=== PATIENT | male | born 1955 | race African-American/Black ===

== ENCOUNTER 2017-10-05 02:14 | Inpatient (IN) | payer OTHER ==
--- NOTE | 2017-09-20 13:43 | History & Physical Pre-Op ---
General Information and HPI MD Statement: I have seen and personally examined TRISTAN BUTLER and documented this H&P. The patient is a 62 year old M who presented with a patient stated chief complaint of bilateral hip pain radiating to bilateral anterior thighs with ambulation. Source of Information: patient, old records Exam Limitations: no limitations History of Present Illness: Tristan is a 62-year-old gentleman who has been complaining of progressively worsening bilateral hip pain that radiates to his anterior thighs bilaterally. He states the pain is worse with ambulation with classic symptoms of neurogenic claudication. He denies any significant low back pain nor any discomfort beyond his knees. He does admit to weakness in bilateral lower extremities with quad buckling but no obvious numbness or tingling in his lower extremities. He also denies any bowel or bladder involvement. Tristan describes his pain as a 7/10 in intensity with ambulation which is relieved with rest. Tristan has tried conservative measures without relief. Given his MRI findings of L2-3 spinal stenosis with suspected pseudoarthrosis at the L4-5 level, and his failure to respond to conservative measures, he wants nothing more to do with nonsurgical treatment. He is being consented for a revision posterior lumbar decompression and fusion L2-S1 with instrumentation and iliac crest bone grafting on 10/05/2017. Allergies/Medications Allergies: Coded Allergies: No Known Allergies (10/04/17) Home Med list Acetaminophen (Tylenol Extra Strength) 500 MG TABLET 1 TAB PO TID PRN pain ( Reported) Allopurinol 300 MG TAB 1 TAB PO DAILY UNKNOWN (Reported) Aspirin (Ecotrin) 81 MG TABLET.DR 1 TAB PO DAILY BLOOD THINNER (Reported) Atenolol 50 MG TABLET 1 TAB PO DAILY BLOOD PRESSURE (Reported) Hydrochlorothiazide (Hydrodiuril 25 MG Tab) 25 MG TABLET 1 TAB PO DAILY BLOOD PRESSURE (Reported) Losartan (Cozaar) 100 MG TABLET 1 TAB PO DAILY BLOOD PRESSURE (Reported) Nifedipine (Adalat Cc) 30 MG TABLET.ER 1 TAB PO DAILY UNKNOWN (Reported) Sitagliptin Phos/Metformin HCl (Janumet 50-500 MG Tablet) 50 MG-500 MG TABLET 1 TAB PO BID diabetes (Reported) Compliance With Home Meds: GOOD Past History Medical History Blood Transfusion Hx: No Neurological: NONE EENT: NONE Cardiovascular: hypertension Respiratory: NONE Gastrointestinal: NONE Hepatic: NONE Renal: NONE Musculoskeletal: chronic back pain, disk herniation, degen joint disease, gout, osteoarthritis, sciatica, spinal stenosis Psychiatric: NONE Endocrine: diabetes Blood Disorders: NONE Cancer(s): NONE 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 2013, s/p right shoulder arthroscopy 2015, s/p colonoscopy Past Family/Social History Family History Relations & Conditions if any MOTHER (Alzheimer's DiseaseHypertensionDiabetes Mellitus). Age 85. FATHER, , Age 74; Cause: Colon cancer. SISTER (Mini Strokes(TIA)). Age 69. Psychosocial History Where Do You Live? Home Who Do You Live With? parent Services at Home None Primary Language: Australian Smoking Status: Former Smoker (quit 30 years ago) ETOH Use: 1-2 scotch drinks a week Illicit Drug Use: denies illicit drug use Other Social History: Single with no children. 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 Exam & Diagnostic Data Last 24 Hrs of Vital Signs/I&O Height: 5' 9" Weight: 280 lbs. Physical Exam General Appearance Alert, Oriented X3, Cooperative, No Acute Distress Skin No Rashes, No Breakdown, No Significant Lesion HEENT Atraumatic, PERRLA, EOMI, Mucous Membr. moist/pink Neck Supple, No JVD, No thryomegaly, +2 Carotid Pulse wo Bruit Lymphatic Cervical nl Cardiovascular Regular Rate, Normal S1, Normal S2, No Murmurs Lungs Clear to Auscultation Abdomen Normal Bowel Sounds, Soft, No Tenderness Neurological +2 DELORES. ACHILLES REFLEXES, ABSENT DELORES. PATELLAR REFLEXES, WEAK +3 DELORES. QUADS, ATROPHY OF DELORES. QUADS Extremities No Edema, Normal Pulses Vascular Normal Pulses Assessment/Plan Assessment/Plan: Assessment: Severe spinal stenosis at L2-3 and pseudoarthrosis at L4-5. Plan: Tristan is scheduled for a revision posterior lumbar decompression and fusion L2-S1 with instrumentation and iliac crest bone grafting on 10/05/2017. We discussed the procedure in full detail, as well as the pre-and postoperative course, follow-up care, and anticipated recovery. We also discussed the do's and don'ts and postoperative discharge instructions. We discussed the benefits, alternatives, and risks, not to exclude, , paralysis, infection, bleeding, continued pain, failure of the surgery, need for future surgery, DVT, vascular injury, CSF leak, etc., and given these risks, he still wishes to proceed. He is scheduled to follow-up with Dr. Eddy Keenan for his preoperative clearance. Any changes in this patient's plan is based on this patient's outpatient clinical presentation. Copies To: Kris SPEAR,Luciano Attending MD Review Statement Attending Statement Attending MD Statement: examined this patient, discuss w/resident/PA/WAREHOUSE PACKAGING SUPERVISOR, agreed w/resident/PA/WAREHOUSE PACKAGING SUPERVISOR, reviewed images
[~2017-10-05] VITALS: Ht 175.3 cm; Wt 126.6 kg
[~2017-10-05 02:14] MED LIST: ADALAT CC30 MG PO; ALLOPURINOL300 MG PO; ASPIR 8181 MG PO; ATENOLOL50 MG PO; COZAAR 100MG T100 MG PO; GOOD SENSE ASPI81 M1 PO; HYDRODIURIL 2525 MG PO; JANUMET 50-5001 EACH PO; TYLENOL EXTRA500 M2 PO
--- NOTE | 2017-10-05 10:59 | Operative Report ---
Operative/Inv Procedure Report Surgery Date: 10/05/17 Name of Procedure: Lumbosacral inspection of fusion mass level of segmental hardware bilaterally L3 4 5 S1. Laminectomies L3 4 4551. Pedicle screw instrumentation L3 4 5 S1. Use of fluoroscopy. Fusion with local autologous bone graft L3 to S1. 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 Estimated Blood Loss: 200 Surgeon/Product Development Specialist: Kris SPEAR,Luciaon ESCOBEDO Anesthesia: general endotracheal tube Monitors: Neuro Operative/Procedure Note Note: After adequate general anesthesia was achieved the patient was placed in the prone position. Previous incision was entered sharply with the scalpel in the midline. Dissection was carried over the dorsal elements with electrocautery and the deep retractors were placed. The hardware was examined as was the fusion and there is evidence of failed hardware at a nonunion at L5-S1 bilaterally. The hardware was removed. One screw was still found to be stripped at L5 on the right and was left in place. The osteotome and instrumentation was used to create laminectomies removing some of the ostial calcified bone over the laminotomy the right side. The bone was stored for fusion. The screw holes were evaluated the whole at L3 on the left was found to be soft and not used for instrumentation and screws were placed on the right side at L3 bilaterally at L4 on the left side at L5 and bilaterally at S1. Excellent purchase was achieved and all screws placed. The rods were contoured into position and torqued tightened into the to a section of the screws. The wound was copiously irrigated the bone graft was packed over the decorticated area from L3 to S1 laterally. The wound was again irrigated a closure of the lumbar dorsal fashion subcutaneous tissue was performed with absorbable suture the skin was closed with brooks. Sterile dressings were applied. Patient was transferred to the [facility].
[2017-10-05] MEDS ORDERED: METFORMIN HCL500 M3 PO (11:35)
--- NOTE | 2017-10-05 11:52 | Patient Discharge Instructions ---
Acute Coronary Syndrome Inclusion Criteria At DC or during hospital stay patient has or had the following: ACS DIAGNOSIS No Discharge Core Measures Meds if any: Prescribed or Continued at Discharge Meds if any: NOT Prescribed or Continued at Discharge Congestive Heart Failure Inclusion Criteria At DC or during hospital stay patient has or had the following: CHF DIAGNOSIS No Discharge Core Measures Meds if any: Prescribed or Continued at Discharge Meds if any: NOT Prescribed or Continued at Discharge Cerebrovascular accident Inclusion Criteria At DC or during hospital stay patient has or had the following: CVA/TIA Diagnosis No Discharge Core Measures Meds if any: Prescribed or Continued at Discharge Meds if any: NOT Prescribed or Continued at Discharge Venous thromboembolism Inclusion Criteria VTE Diagnosis No VTE Type NONE VTE Confirmed by (Test) NONE Discharge Core Measures - Per Current guidelines, there needs to be overlap - treatment for the first 5 days of Warfarin therapy. - If discharged on Warfarin prior to 5 days of - overlap therapy, the patient will need to be - assessed for post discharge needs including - *Post discharge parental anticoagulation - *Warfarin and/or parental anticoagulation education - *Follow up date to check INR post discharge At least 5 days overlap therapy as Inpatient No Meds if any: Prescribed or Continued at Discharge Note: Overlap Therapy is Warfarin and Anticoagulant Meds if any: NOT Prescribed or Continued at Discharge
[2017-10-05] MEDS ORDERED: COLACE100 M1 PO (11:56)
[2017-10-05] MEDS ORDERED: MILK OF MA400 MG/52 PO (11:56)
[2017-10-05] MEDS ORDERED: MULTIVITAMINS1 EAC9 PO (11:56)
[2017-10-05] MEDS ORDERED: DULCOLAX10 M1 RC (11:56)
[2017-10-05] MEDS ORDERED: OS-CAL 500+D31 EAC1 PO (11:56)
[2017-10-05] MEDS ORDERED: TYLENOL EXTRA500 M2 PO (11:56)
[2017-10-05] MEDS ORDERED: PERCOCET 5-3251 EACH PO (11:56)
[2017-10-05] MEDS ORDERED: VITAMIN D31000 UNI2 PO (11:56)
[2017-10-05 12:09] LABS: ABSOLUTE BASOPHIL COUNT 0 /CUMM (0.0-0.2); ABSOLUTE GRANULOCYTE CT 8.2 /CUMM (1.4-6.5); ABSOLUTE LYMPH COUNT 1.4 /CUMM (1.2-3.4)
[2017-10-05 12:17] LABS: ABSOLUTE EOSINOPHIL COUNT 0 /CUMM (0.0-0.7); ABSOLUTE MONOCYTE COUNT 0.3 /CUMM (0.10-0.60); BASOPHIL % 0.5 % (0.0-2.0); EOSINOPHIL % 0.4 % (0-5); GRANULOCYTE % 82.5 % (42.2-75.2); HEMATOCRIT 42.8 % (42-52); MEAN CORPUSCULAR HGB 31.1 PG (27.0-31.0); MEAN CORPUSCULAR HGB CONC 34.6 G/DL (33.0-37.0); MEAN PLATELET VOLUME 9.2 FL (7.4-10.4); RBC DISTRIBUTION WIDTH 14.8 % (11.5-14.5); RED BLOOD CELL CT 4.75 /CUMM (4.70-6.10)
[2017-10-05 12:31] LABS: PLATELET COUNT 237 /CUMM (130-400)
[2017-10-05 13:08] VITALS: BP 150/90
--- NOTE | 2017-10-05 14:17 | Cons- Medical ---
Scarlet Arshad MD 10/05/17 1416: General Information and HPI Consulting Request Date of Consult: 10/05/17 Requested By: Luciano Ponce MD Reason for Consult: HTN and DM management Source of Information: patient, old records Exam Limitations: no limitations History of Present Illness: Patient is a 62 YO M with PMH significant for HTN, DM, spinal stenosis requiring surgical intervention presented electively for lumbosacral laminectomy with pedicle screw instrumentation followed by local autologous bone grafting. Medicine is consulted for management of diabetes and hypertension postoperatively. Reportedly never had any cardiac problems. He quit smoking, socially drinks twice a week, no drugs of abuse He had his shoulder surgery in 2016. Allergies/Medications Allergies: Coded Allergies: No Known Allergies (10/04/17) Home Med List: Acetaminophen (Tylenol Extra Strength) 500 MG TABLET 1 TAB PO TID PRN pain ( Reported) Acetaminophen (Tylenol Extra Strength) 500 MG TABLET 1 TAB PO TID PRN TEMP>101 Allopurinol 300 MG TAB 1 TAB PO DAILY UNKNOWN (Reported) Aspirin (Ecotrin) 81 MG TABLET.DR 1 TAB PO DAILY BLOOD THINNER (Reported) Atenolol 50 MG TABLET 1 TAB PO DAILY BLOOD PRESSURE (Reported) Bisacodyl (Dulcolax) 10 MG SUPP.RECT 1 SUP RC DAILY PRN CONSTIPATION Calcium Carbonate/Vitamin D3 (Os-Adalberto 500+D3 Caplet) 500 MG-200 TABLET 1 TAB PO BID BONE HEALTH Cholecalciferol (Vitamin D3) 1,000 UNIT TABLET 1 TAB PO DAILY BONE HEALTH Docusate Sodium (Colace) 100 MG CAPSULE 1 CAP PO BID PRN CONSTIPATION Hydrochlorothiazide (Hydrodiuril 25 MG Tab) 25 MG TABLET 1 TAB PO DAILY BLOOD PRESSURE (Reported) Losartan (Cozaar) 100 MG TABLET 1 TAB PO DAILY BLOOD PRESSURE (Reported) Magnesium Hydroxide (Milk Of Magnesia) 400 MG/5 ML ORAL.SUSP 5 ML PO Q8P PRN CONSTIPATION Metformin HCl 500 MG TABLET 1 TAB PO BID DIABETES (Reported) Multiple Vitamin (Multivitamins) 1 EACH TABLET 1 TAB PO DAILY GENERAL HEALTH Nifedipine (Adalat Cc) 30 MG TABLET.ER 1 TAB PO DAILY UNKNOWN (Reported) Oxycodone HCl/Acetaminophen (Percocet 5-325 MG Tablet) 5 MG-325 MG TABLET 1-2 TAB PO Q4-6 PRN PAIN Sitagliptin Phos/Metformin HCl (Janumet 50-500 MG Tablet) 50 MG-500 MG TABLET 1 TAB PO BID diabetes (Reported) Current Medications: Current Medications Sig/Maria Isabel Start time Last Medication Dose Route Stop Time Status Admin Acetaminophen 650 MG Q4P PRN 10/05 1145 AC PO Acetaminophen 1,000 MG .STK-MED ONE 10/05 0709 DC IV 10/05 0710 Allopurinol 300 MG DAILY 10/06 09 AC PO Aspirin Buffered 81 MG DAILY 10/06 09 AC PO Atenolol 50 MG DAILY 10/06 09 AC PO Bisacodyl 10 MG DAILY NEEDED PRN 10/05 1145 AC UT Calcium 600 MG BID 10/05 2100 AC PO Cefazolin Sodium 1,000 MG IQ8 10/05 1600 AC 10/05 IV 10/06 0801 1637 Cefazolin Sodium 2,000 MG ONCE 10/05 0000 NR IV 10/05 2359 Cholecalciferol 1,000 IU DAILY 10/06 09 AC PO Docusate Sodium 100 MG TID 10/05 1400 AC 10/05 PO 1447 Fentanyl Citrate 250 MCG .STK-MED ONE 10/05 0708 DC IM 10/05 0709 Hydrochlorothiazide 25 MG DAILY 10/06 09 AC PO Hydromorphone HCl 2 MG .STK-MED ONE 10/05 0707 DC IM 10/05 0708 Insulin Aspart 0 AT BEDTIME 10/05 2100 AC SC Insulin Aspart 0 TIDAC 10/05 1200 AC 10/05 SC 1637 Lactated Ringer's 1,000 ML Q10H 10/05 1145 AC 10/05 IV 1446 Losartan Potassium 100 MG DAILY 10/06 09 AC PO Magnesium Hydroxide 30 ML Q8P PRN 10/05 1145 AC PO Metformin HCl 500 MG BID 10/05 2100 AC PO Midazolam HCl 2 MG .STK-MED ONE 10/05 0708 DC IM 10/05 0709 Morphine Sulfate 1 MG Q3P PRN 10/05 1145 AC IV Multivitamins 1 TAB DAILY 10/06 09 AC PO Nifedipine 30 MG DAILY 10/06 0900 AC PO Ondansetron HCl 4 MG Q6P PRN 10/05 1145 AC IV Oxycodone/ 1 TAB Q4P PRN 10/05 1145 AC Acetaminophen PO Oxycodone/ 2 TAB Q4P PRN 10/05 1145 AC 10/05 Acetaminophen PO 1637 Remifentanil 2 MG .STK-MED ONE 10/05 0708 DC IV 10/05 0709 Sitagliptin Phosphate 50 MG BID 10/05 2100 AC PO Trimethobenzamide HCl 200 MG Q6P PRN 10/05 1145 AC IM Review of Systems Review of Systems Constitutional: Reports: see HPI. 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 2013 s/ p right shoulder arthroscopy 2016 s/p colonoscopy Family History Relations & Conditions If Any: MOTHER (Alzheimer's DiseaseHypertensionDiabetes Mellitus). Age 85. FATHER, , Age 74; Cause: Colon cancer. SISTER (Mini Strokes(TIA)). Age 69. Psychosocial History Where Do You Live? Home Who Do You Live With? parent Services at Home: None Primary Language: Bahamian Smoking Status: Never Smoked (quit 30 years ago) ETOH Use: 1-2 scotch drinks a week Illicit Drug Use: denies illicit drug use Other Social History: Single with no children. Functional Ability ADLs Independent: dressing, eating, toileting, bathing. IADLs Independent: shopping, housework, finances, food prep, telephone, transportation , medication admin. 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 Exam & Diagnostic Data Last 24 Hrs of Vital Signs/I&O Vital Signs Date Time Temp Pulse Resp B/P B/P Pulse O2 O2 Flow FiO2 Mean Ox Delivery Rate 10/05 1806 Room Air 10/05 1313 92 Room Air Room Air 10/05 1308 97.8 63 16 150/90 92 Room Air Room Air Intake & Output 10/05 1600 10/05 0800 10/05 0000 Intake Total Output Total 850 Balance -850 Output, Urine 850 Patient 126.552 kg Weight Weight Reported by Patient Measurement Method Physical Exam General Appearance: well developed/nourished, no apparent distress, alert, awake Head: atraumatic, normal appearance Eyes: Bilateral: normal appearance, PERRL, EOMI. Ears, Nose, Throat: normal pharynx, normal ENT inspection Neck: normal inspection, supple Cardiovascular: regular rate/rhythm, normal heart sounds Peripheral Pulses: 2+ radial (R), 2+ radial (L) Gastrointestinal: normal bowel sounds, soft, non-tender Extremities: normal inspection, normal capillary refill Neurologic/Psych: awake, alert, oriented x 3, normal mood/affect Cranial Nerves: normal hearing, normal speech, PERRL Last 24 Hrs of Labs/Gentry: Laboratory Tests 10/05/17 1200: CBC w Diff NO MAN DIFF REQ, RBC 4.75, MCV 90.0, MCH 31.1 H, MCHC 34.6, RDW 14.8 H, MPV 9.2, Gran % 82.5 H, Lymphocytes % 14.0 L, Monocytes % 2.6, Eosinophils % 0.4, Basophils % 0.5, Absolute Granulocytes 8.2 H, Absolute Lymphocytes 1.4, Absolute Monocytes 0.3, Absolute Eosinophils 0, Absolute Basophils 0 Assessment/Plan Assessment/Plan Patient is a 62-year-old male with history of diabetes, hypertension presented to [place] electively for laminectomy/bone grafting of lumbar spinal stenosis. He had a history of diabetes and on oral hypoglycemics started 10/metformin 50/ 500 twice a day. He takes for antihypertensives including no rales, hype hydrochlorothiazide, losartan and nifedipine. His aspirin was on hold prior to surgery. Problem list 1. Status post Lumbosacral inspection of fusion mass level of segmental hardware bilaterally L3 4 5 S1. Laminectomies L3-S1. Pedicle screw instrumentation L3-S1. Fusion with local autologous bone graft L3 to S1 - POD 0 2. Diabetes mellitus on oral hypoglycemics 3. Hypertension 4. Gout Plan Continue postoperative care per surgery Please avoid oral hypoglycemic agents while in the hospital Start low-dose insulin sliding scale with meals, Accu-Cheks TIDAC/HS, Levemer 3 units twice a day Continue antihypertensives including atenolol, losartan, nifedipine HCTZ for now Pain management per surgery DVT prophylaxis all the time Problem List: 1. Gout 2. Diabetes 3. Hypertension Consult Acknowledgment - Thank you for your consult request. Chris Strickland MD 10/05/17 5809: Assessment/Plan Consult Acknowledgment - Thank you for your consult request. Attending MD Review Statement Attending Statement Attending Statement: examined this patient, discuss w/resident/PA/ESCORT BLIND, agreed w/resident/PA/ESCORT BLIND, discussed with family, reviewed EMR data (avail), amended to note Attending Assessment/Plan: The patient is a 62 yo male with h/o HTN, DM2, asthma, and spinal stenosis and h /o prior lumbar surgery who presented with h/o increasing back pain for elective lumbosacral laminectomy. His BP and diabetes have been stable. He did well with surgery. The patient is feeling well post op other than typical LBP. No dyspnea, chest pain or GI symptoms. Physical Exam; VS: T 97.8, P 63, R 16, BP 150/80, PO 92% HEENT: eyes- PERRLA, EOMI christina- moist mucosa Neck: no bruits/JVD Chest: clear Cor: RRR nl S1, S2 w/o murm Abd: BS+, soft, NT Ext: no edema, pulses 2+ Neuro: alert & oriented, non-focal exam Labs/Tests- as above. Impression/Plan: #S/P Lumbosacral Fusion- did well with surgery. Plan: As per surgery. #HTN- BP stable. Plan: Continue Nifedipine, HTCZ, Atenolol, & Losartan. #DM2- blood sugars being followed. Plan: Agree with sliding scale overage at present. Continuing oral agents.
--- NOTE | 2017-10-05 17:51 | PN- Orthopedic ---
Subjective Subjective: patient feels well without complaints postop, pain controlled Objective Vital Signs and I&Os Vital Signs Date Time Temp Pulse Resp B/P B/P Pulse O2 O2 Flow FiO2 Mean Ox Delivery Rate 10/05 1313 92 Room Air Room Air 10/05 1308 97.8 63 16 150/90 92 Room Air Room Air Intake & Output 10/05 1600 10/05 0800 10/05 0000 10/04 1600 10/04 0800 10/04 0000 Intake Total Output Total 850 Balance -850 Output, Urine 850 Patient 279 lb 280 lb Weight Weight Reported by Patient Measurement Method lumbar spine - mild drinage in dressings -reinforced motor 5/5 all muscle groups sensory intact, distal pulses intact calves soft bilaterally and distal pulses intact Assessment/Plan Assessment/Plan 62 y/o male with loose hardware and unonunion s/p Lumbosacral inspection of fusion mass level of segmental hardware bilaterally L3 4 5 S1. Laminectomies L3-S1. Pedicle screw instrumentation L3-S1. Fusion with local autologous bone graft L3 to S1. EBL @ 200cc sitting in bed -drainage in into dressings -reinforced by nursing -appears to be minimal and not worrisome tolarating POs -had a full dinner without nausea or vomiting voided without difficulty OOB with nursing ambulation with assitance Core Measures Venous Thromboembolism VTE Risk Factors No risk factors No Mechanical VTE Prophylaxis d/t Surgical Contraindication No VTE Pharm Prophylaxis d/t NA PharmProphylax ordered
[2017-10-05 21:29] VITALS: BP 136/90
[2017-10-06 06:45] VITALS: BP 130/80
[2017-10-06 08:34] LABS: ABSOLUTE BASOPHIL COUNT 0 /CUMM (0.0-0.2); ABSOLUTE EOSINOPHIL COUNT 0.1 /CUMM (0.0-0.7); ABSOLUTE GRANULOCYTE CT 6.5 /CUMM (1.4-6.5); ABSOLUTE MONOCYTE COUNT 1.2 /CUMM (0.10-0.60); BASOPHIL % 0.3 % (0.0-2.0); EOSINOPHIL % 0.8 % (0-5); GRANULOCYTE % 66.9 % (42.2-75.2); HEMATOCRIT 40.1 % (42-52); MEAN CORPUSCULAR HGB 30.9 PG (27.0-31.0); MEAN CORPUSCULAR VOLUME 90.7 FL (80.0-94.0); MEAN PLATELET VOLUME 8.5 FL (7.4-10.4); PLATELET COUNT 274 /CUMM (130-400); RBC DISTRIBUTION WIDTH 14.8 % (11.5-14.5); RED BLOOD CELL CT 4.43 /CUMM (4.70-6.10); WHITE BLOOD CELL COUNT 9.8 /CUMM (4.8-10.8)
--- NOTE | 2017-10-06 10:47 | PN- Medicine Consult ---
Pavithra SPEAR,Scarlet 10/06/17 1046: Assessment/PlanMedical Consult Assessment/Plan Assessment: Patient is a 62-year-old male with history of diabetes, hypertension presented to [facility] electively for laminectomy/bone grafting of lumbar spinal stenosis. He had a history of diabetes and on oral hypoglycemics started 10/metformin 50/ 500 twice a day. He takes for antihypertensives including no rales, hype hydrochlorothiazide, losartan and nifedipine. His aspirin was on hold prior to surgery. Problem list 1. Status post Lumbosacral inspection of fusion mass level of segmental hardware bilaterally L3 4 5 S1. Laminectomies L3-S1. Pedicle screw instrumentation L3-S1. Fusion with local autologous bone graft L3 to S1 - POD 1 2. Diabetes mellitus on oral hypoglycemics 3. Hypertension 4. Gout Plan Continue postoperative care per surgery Please avoid oral hypoglycemic agents while in the hospital Start low-dose insulin sliding scale with meals, Accu-Cheks TIDAC/HS, Levemer 3 units twice a day Continue antihypertensives including atenolol, losartan, nifedipine HCTZ for now Pain management per surgery DVT prophylaxis all the time Plan: ABOVE Problem List: 1. Diabetes 2. Hypertension 3. Gout Subjective Subjective: seen at bedside. Appears stable. No overnight issues. Review of Systems Constitutional: Reports: see HPI. Objective Last 24 Hrs of Vital Signs/I&O Vital Signs Date Time Temp Pulse Resp B/P B/P Pulse O2 O2 Flow FiO2 Mean Ox Delivery Rate 10/06 0852 64 148/98 10/06 0645 97.6 56 16 130/80 96 10/05 2129 98.5 62 18 136/90 95 10/05 1806 Room Air 10/05 1600 Room Air 10/05 1313 92 Room Air Room Air 10/05 1308 97.8 63 16 150/90 92 Room Air Room Air Intake & Output 10/06 1600 10/06 0800 10/06 0000 Intake Total 2130 Output Total 1325 400 Balance -1325 1730 Intake, IV 800 Intake, Oral 1330 Output, Urine 1325 400 Physical Exam General Appearance: well developed/nourished, no apparent distress, alert, awake , comfortable Head: atraumatic, normal appearance Ears, Nose, Throat: normal pharynx, normal ENT inspection Neck: normal inspection, supple Cardiovascular: regular rate/rhythm, normal S1, S2 Respiratory: normal breath sounds, chest non-tender, no respiratory distress Peripheral Pulses: 2+ radial (R), 2+ radial (L) Abdomen: normal bowel sounds, soft, non-tender Current Medications: Current Medications Sig/Maria Isabel Start time Last Medication Dose Route Stop Time Status Admin Acetaminophen 650 MG Q4P PRN 10/05 1145 AC PO Allopurinol 300 MG DAILY 10/06 09 AC 10/06 PO 0850 Aspirin Buffered 81 MG DAILY 10/06 09 AC 10/06 PO 0849 Atenolol 50 MG DAILY 10/06 09 AC 10/06 PO 0850 Bisacodyl 10 MG DAILY NEEDED PRN 10/05 1145 AC UT Calcium 600 MG BID 10/05 2100 AC 10/06 PO 0849 Cefazolin Sodium 1,000 MG IQ8 10/05 1600 DC 10/06 IV 10/06 0801 0848 Cefazolin Sodium 2,000 MG ONCE 10/05 0000 DC IV 10/05 2359 Cholecalciferol 1,000 IU DAILY 10/06 09 AC 10/06 PO 0850 Docusate Sodium 100 MG TID 10/05 1400 AC 10/06 PO 1543 Hydrochlorothiazide 25 MG DAILY 10/06 09 AC 10/06 PO 0852 Insulin Aspart 0 AT BEDTIME 10/05 2100 AC SC Insulin Aspart 0 TIDAC 10/05 1200 AC 10/06 SC 0849 Lactated Ringer's 1,000 ML Q10H 10/05 1145 AC 10/06 IV 0848 Losartan Potassium 100 MG DAILY 10/06 09 AC 10/06 PO 0852 Magnesium Hydroxide 30 ML Q8P PRN 10/05 1145 AC PO Metformin HCl 500 MG BID 10/05 2100 AC 10/06 PO 0849 Morphine Sulfate 1 MG Q3P PRN 10/05 1145 AC IV Multivitamins 1 TAB DAILY 10/06 09 AC 10/06 PO 0850 Nifedipine 30 MG DAILY 10/06 09 AC 10/06 PO 0849 Ondansetron HCl 4 MG Q6P PRN 10/05 1145 AC IV Oxycodone/ 1 TAB Q4P PRN 10/05 1145 AC Acetaminophen PO Oxycodone/ 2 TAB Q4P PRN 10/05 1145 AC 10/06 Acetaminophen PO 1539 Patient Medication 1 ED ONE ONE 10/06 1345 DC 10/06 Teaching ED 10/06 1346 1539 Sitagliptin Phosphate 50 MG BID 10/05 2100 AC 10/06 PO 0849 Trimethobenzamide HCl 200 MG Q6P PRN 10/05 1145 AC IM Results Last 24 Hrs Lab/[place] Results: Laboratory Tests 10/06/17 0758: CBC w Diff NO MAN DIFF REQ, RBC 4.43 L, MCV 90.7, MCH 30.9, MCHC 34.0, RDW 14.8 H, MPV 8.5, Gran % 66.9, Lymphocytes % 20.2 L, Monocytes % 11.8 H, Eosinophils % 0.8, Basophils % 0.3, Absolute Granulocytes 6.5, Absolute Lymphocytes 2.0, Absolute Monocytes 1.2 H, Absolute Eosinophils 0.1, Absolute Basophils 0 Chris Strickland MD 10/06/17 1441: Attending MD Review Statement Attending Sign Off Attending Cosign Statement: I have: examined this patient, reviewed [facility] EMR data, discussd w/resident/PA/ STOCK GRADER, discussed mgmt plan w/rusty, discussed mgmt plan w/pt, agreed w/resident/PA/STOCK GRADER , amended to note. Other Findings: The patient was seen and discussed with the resident. He is doing well post operatively. Agree with plan of care.
--- NOTE | 2017-10-06 11:56 | PN- Orthopedic ---
Subjective Subjective: Patient feeling better. No preop symptoms. + mild postop incisional pain. Ambulated with PT. No fever/chills, N/V, SOB. Joaquim. po. +Voiding and + flatus. Review of Systems: Remarkable for the above complaints. Objective Vital Signs and I&Os Vital Signs Date Time Temp Pulse Resp B/P B/P Pulse O2 O2 Flow FiO2 Mean Ox Delivery Rate 10/06 0852 64 148/98 10/06 0645 97.6 56 16 130/80 96 10/05 2129 98.5 62 18 136/90 95 10/05 1806 Room Air 10/05 1600 Room Air 10/05 1313 92 Room Air Room Air 10/05 1308 97.8 63 16 150/90 92 Room Air Room Air Intake & Output 10/06 1600 10/06 0800 10/06 0000 10/05 1600 10/05 0800 10/05 0000 Intake Total 2130 Output Total 1325 400 850 Balance -1325 1730 -850 Intake, IV 800 Intake, Oral 1330 Output, Urine 1325 400 850 Patient 279 lb Weight Weight Reported by Patient Measurement Method Physical Exam General Appearance: well developed/nourished, no apparent distress, alert, awake , comfortable Respiratory: normal breath sounds, no respiratory distress Cardiovascular: regular rate/rhythm Abdomen: normal bowel sounds, soft, non-tender Back: Incision C/D/I. Dressing changed. + old blood present. No active bleeding noted. +edema around incision. Neurologic/Psychiatric: Neurovascularly stable and intact with no new or worsening gross motor or sensory loss in oscar. lower extremities. Skin: intact Current Medications: Current Medications Sig/Maria Isabel Start time Last Medication Dose Route Stop Time Status Admin Acetaminophen 650 MG Q4P PRN 10/05 1145 AC PO Allopurinol 300 MG DAILY 10/06 09 AC 10/06 PO 0850 Aspirin Buffered 81 MG DAILY 10/06 09 AC 10/06 PO 0849 Atenolol 50 MG DAILY 10/06 09 AC 10/06 PO 0850 Bisacodyl 10 MG DAILY NEEDED PRN 10/05 1145 AC PA Calcium 600 MG BID 10/05 2100 AC 10/06 PO 0849 Cefazolin Sodium 1,000 MG IQ8 10/05 1600 DC 10/06 IV 10/06 0801 0848 Cefazolin Sodium 2,000 MG ONCE 10/05 0000 DC IV 10/05 2359 Cholecalciferol 1,000 IU DAILY 10/06 0900 AC 10/06 PO 0850 Docusate Sodium 100 MG TID 10/05 1400 AC 10/06 PO 0849 Hydrochlorothiazide 25 MG DAILY 10/06 09 AC 10/06 PO 0852 Insulin Aspart 0 AT BEDTIME 10/05 2100 AC SC Insulin Aspart 0 TIDAC 10/05 1200 AC 10/06 SC 0849 Lactated Ringer's 1,000 ML Q10H 10/05 1145 AC 10/06 IV 0848 Losartan Potassium 100 MG DAILY 10/06 0900 AC 10/06 PO 0852 Magnesium Hydroxide 30 ML Q8P PRN 10/05 1145 AC PO Metformin HCl 500 MG BID 10/05 2100 AC 10/06 PO 0849 Morphine Sulfate 1 MG Q3P PRN 10/05 1145 AC IV Multivitamins 1 TAB DAILY 10/06 0900 AC 10/06 PO 0850 Nifedipine 30 MG DAILY 10/06 0900 AC 10/06 PO 0849 Ondansetron HCl 4 MG Q6P PRN 10/05 1145 AC IV Oxycodone/ 1 TAB Q4P PRN 10/05 1145 AC Acetaminophen PO Oxycodone/ 2 TAB Q4P PRN 10/05 1145 AC 10/06 Acetaminophen PO 0916 Sitagliptin Phosphate 50 MG BID 10/05 2100 AC 10/06 PO 0849 Trimethobenzamide HCl 200 MG Q6P PRN 10/05 1145 AC IM Results Last 48 Hours of Labs: Laboratory Tests 10/06 10/05 0758 1200 Hematology CBC w Diff NO MAN DIFF REQ NO MAN DIFF REQ WBC (4.8 - 10.8 /CUMM) 9.8 10.0 RBC (4.70 - 6.10 /CUMM) 4.43 L 4.75 Hgb (14.0 - 18.0 G/DL) 13.6 L 14.8 Hct (42 - 52 %) 40.1 L 42.8 MCV (80.0 - 94.0 FL) 90.7 90.0 MCH (27.0 - 31.0 PG) 30.9 31.1 H MCHC (33.0 - 37.0 G/DL) 34.0 34.6 RDW (11.5 - 14.5 %) 14.8 H 14.8 H Plt Count (130 - 400 /CUMM) 274 237 MPV (7.4 - 10.4 FL) 8.5 9.2 Gran % (42.2 - 75.2 %) 66.9 82.5 H Lymphocytes % (20.5 - 51.1 %) 20.2 L 14.0 L Monocytes % (1.7 - 9.3 %) 11.8 H 2.6 Eosinophils % (0 - 5 %) 0.8 0.4 Basophils % (0.0 - 2.0 %) 0.3 0.5 Absolute Granulocytes (1.4 - 6.5 /CUMM) 6.5 8.2 H Absolute Lymphocytes (1.2 - 3.4 /CUMM) 2.0 1.4 Absolute Monocytes (0.10 - 0.60 /CUMM) 1.2 H 0.3 Absolute Eosinophils (0.0 - 0.7 /CUMM) 0.1 0 Absolute Basophils (0.0 - 0.2 /CUMM) 0 0 Assessment/Plan Assessment/Plan Assessment: S/p Rev. PLDF L3-S1 with Instr./local bone Plan: Continue po Percocet D/C IV fluids Ambulate with PT Do's and Don'ts explained. Will F/U in am Possible D/C in am Problem List: 1. Hypertension 2. Diabetes 3. Gout Core Measures Venous Thromboembolism VTE Risk Factors No risk factors No Mechanical VTE Prophylaxis d/t Surgical Contraindication No VTE Pharm Prophylaxis d/t NA PharmProphylax ordered Attending MD Review Statement Attending Statement Attending MD Statement: examined this patient, discuss w/resident/PA/EMERGENCY TELECOMMUNICATIONS DISPATCHER, agreed w/resident/PA/EMERGENCY TELECOMMUNICATIONS DISPATCHER
[2017-10-06 15:18] VITALS: BP 138/78
[2017-10-06 22:26] VITALS: BP 141/82
[2017-10-07 06:42] VITALS: BP 155/81
[2017-10-07 08:24] VITALS: BP 146/86
--- NOTE | 2017-10-07 08:39 | PN- Orthopedic ---
Subjective Subjective: OOB in chair, no complaints overnight ambulating withoug difficulty pain is well controlled tolerating diet Objective Vital Signs and I&Os Vital Signs Date Time Temp Pulse Resp B/P B/P Pulse O2 O2 Flow FiO2 Mean Ox Delivery Rate 10/07 0824 73 146/86 10/07 0823 73 146/86 10/07 0823 73 146/86 10/07 0642 98.5 62 20 155/81 95 Room Air 10/06 2226 98.3 68 20 141/82 96 Room Air 10/06 1518 98.6 55 18 138/78 97 10/06 0852 64 148/98 Intake & Output 10/07 1600 10/07 0800 10/07 0000 10/06 1600 10/06 0800 10/06 0000 Intake Total 161 136 4962 Output Total 150 1625 400 Balance 50 -1525 1730 Intake, IV 100 800 Intake, Oral 200 1330 Output, Urine 150 1625 400 Physical Exam: VSS,afebrile Chest: clear bilaterally, no r/r/w, RRR Abd: soft, good bs Ext: Neurovascularly stable and intact, no new or worsening gross motor or sensory loss in oscar. lower extremities, calves nontender bilaterally Wd: dressing changed, brooks intact, no drainage or erythema Assessment/Plan Assessment/Plan 62yo male pod 2 s/p L3-S1 revision fusion dc planning continue current pain meds PT-WBAT Core Measures Venous Thromboembolism VTE Risk Factors No risk factors No Mechanical VTE Prophylaxis d/t Surgical Contraindication No VTE Pharm Prophylaxis d/t NA PharmProphylax ordered
--- NOTE | 2017-10-07 09:28 | PN- Att Addend ---
Attending Addendum Attending Brief Note Patient seen and examined. He sitting in a chair. Postoperatively appears to be doing well. Blood pressures 146/86, pulse is 73, breathing at 16-18 and MAXIMUM TEMPERATURE of 98.5. He is awake alert oriented, lungs are clear to auscultation, heart is S1-S2 regular, abdomen is soft and his surgical site is dressed. This is a 62-year-old with diabetes, hypertension who is here is with spinal stenosis and status post lumbar surgery with fusion and laminectomy. His blood pressure is well controlled on his current antihypertensive regimen and will likely be discharged today as per surgery.
--- NOTE | 2017-10-07 10:41 | Surg Short-stay <48hrs Dis Sum ---
Visit Information Visit Dates Admission Date: 10/05/17 Discharge Date: 10/07/2017 Surgical Short Stay DC Summary Admission Diagnosis: Severe spinal stenosis at L2-3 and pseudoarthrosis at L4-5. Final Diagnosis: Same, s/p surgery Procedure(s): Lumbosacral inspection of fusion mass level of segmental hardware bilaterally L3 4 5 S1. Laminectomies L3 4 4551. Pedicle screw instrumentation L3 4 5 S1. Use of fluoroscopy. Fusion with local autologous bone graft L3 to S1. Summary/Significant Findings: Pt underwent procedure as listed in Operative report on 10/05. He tolerated the procedure well and was brought to the PACU in stable condition. Over the next two days, he ambulated, his pain was controlled, he voided spontaneously and he tolerated his diet. He was cleared by medicine and PT to be discharged to a hotel on 10/07. All questions answered. Condition at Discharge: good Discharge Disposition: home or self care Discharge instructions provided to patient/family: Yes Post discharge follow-up plan: Scheduled with Dr Ponce
== END 2017-10-07 13:22 | DRG 460 ==
LOC: SDA 02:14 → MERGE 07:00 → ENRESERV 10:47 → ENTRNSPT 12:24 → EDTRNSPTSTS 12:39 → EDTRNSPT 12:39 → CMPTRNSPT 12:52 → 2NB 12:53 → ENPENDDIS 10-07 12:29 → ENTRNSPT 10-07 13:08 → EDTRNSPTSTS 10-07 13:13 → EDTRNSPT 10-07 13:13 → 2NB 10-07 13:22 → CMPTRNSPT 10-07 13:22
PROVIDERS: Orthopaedic Surgery Orthopaedic Surgery of the Spine
PROC: 0SG1071 Fusion of 2 or more Lumbar Vertebral Joints with Autologous Tissue Substitute, Posterior Approach, Posterior Column, Open Approach (ICD-10-PCS; principal; 2017-10-05)
PROC: 0QP004Z Removal of Internal Fixation Device from Lumbar Vertebra, Open Approach (ICD-10-PCS; principal; 2017-10-05)
PROC: 4A11X4G Monitoring of Peripheral Nervous Electrical Activity, Intraoperative, External Approach (ICD-10-PCS; principal; 2017-10-05)
PROC: 0SG3071 Fusion of Lumbosacral Joint with Autologous Tissue Substitute, Posterior Approach, Posterior Column, Open Approach (ICD-10-PCS; principal; 2017-10-05)
DX: M48.062 Spinal stenosis, lumbar region with neurogenic claudication (principal); M96.0 Pseudarthrosis after fusion or arthrodesis; Y83.8 Other surgical procedures as the cause of abnormal reaction of the patient, or of later complication, without mention of misadventure at the time of the procedure; E11.9 Type 2 diabetes mellitus without complications; I10 Essential (primary) hypertension; Z79.84 Long term (current) use of oral hypoglycemic drugs; M10.9 Gout, unspecified; J45.909 Unspecified asthma, uncomplicated; Z87.891 Personal history of nicotine dependence
CPT/HCPCS: 2NBP; 36415; 87086; 97116-GO; 97161-GP; C1713; J0131; J0690; J1644; J3250; J3490; J7120